=== PATIENT | female | born 1995 | race Caucasian/White ===

== ENCOUNTER 2017-03-24 16:58 | Emergency (ER) | payer SELFPAY ==
[~2017-03-24] VITALS: Ht 162.6 cm; Wt 72.0 kg
[2017-03-24 17:07] VITALS: Ht 162.6 cm; Wt 72.0 kg
--- NOTE | 2017-03-24 20:32 | RADRPT ---
PROCEDURE: XR Lumbar Spine. CLINICAL INDICATION: Trauma, fall, back pain TECHNIQUE: AP, lateral and cone-down lateral view of the lumbar spine were obtained. COMPARISON: No prior studies are available for comparison. FINDINGS: There is appearance of a transitional L5 vertebra. No acute fracture or dislocation seen. Small Schm orl's node superior L1 vertebral body. IMPRESSION: No acute abnormality seen. Please see above. RPTAT: HJES .Mikhail Dave MD, MD Date Time Electronically viewed and signed by .Mikhail Dave MD, on 03/24/2017 20:32 .S/
[2017-03-24] MEDS ORDERED: CYCL-319 PO (20:50)
--- NOTE | 2017-03-24 20:59 | ERD ---
ER Documentation Chief Complaint Chief Complaint SLIPPED AT WORK ONTO HER BACK, +LBP & RT KNEE PAIN, DENIES HEAD TRAUMA HPI 22-year-old female presenting 24 hour status post back injury at work. Has not taken any medications for the symptoms. Patient denies saddle paraesthesia, incontinence, urinary retention, RPND, or pain exacerbated by valsalva. Denies fever, chills, night sweats, weight loss, or increase symptoms at night. Patient also denies history of spinal stenosis, HIV, IVDU, arthritis or recent surgery. Patient has no other complaints and describes no other associated manifestations. Nursing notes have been reviewed and are consistent with history given. ROS All systems reviewed and are negative except as per history of present illness. Medications Home Meds Active Scripts Cyclobenzaprine Hcl* (Cyclobenzaprine Hcl*) 10 Mg Tablet, 10 MG PO TID, #15 TAB Prov:MOHAN JIMENEZ PA-C 03/24/17 Allergies Allergies: Coded Allergies: No Known Allergy (Unverified , 03/24/17) PMhx/Soc History of Surgery: No Anesthesia Reaction: No Hx Neurological Disorder: No Hx Respiratory Disorders: No Hx Cardiac Disorders: No Hx Psychiatric Problems: No Hx Miscellaneous Medical Probl: No Hx Alcohol Use: No Hx Substance Use: No Hx Tobacco Use: No Smoking Status: Never smoker Physical Exam Vitals Vital Signs Date Time Temp Pulse Resp B/P Pulse Ox O2 Delivery O2 Flow Rate FiO2 03/24/17 17:07 97.8 83 18 129/88 99 Physical Exam Const: Well-appearing. No distress. Back: No midline, flank or CVA tenderness. Negative straight leg raise. Range of motion decreased secondary to pain. Neur: No saddle anesthesia. Neurovascularly intact bilaterally. Head: Normocephalic, Atraumatic. Eyes: Non-injected; No discharge. EOMI and CRISS bilaterally. Ears: Normal External Ears, EACs clear, TM normal bilaterally without erythema. Nose: Normal external nose; no discharge, or sinus tenderness. Oral: No oral edema visualized. Mucous membranes moist and pink. Neck: No tenderness. No cervical lymphadenopathy, or masses palpated. Supple ~ No meningismus. Pulm: Good air movement in upper and lower respiratory tracts. Clear to auscultation bilaterally. No dyspnea or stridor. Cardio: Regular rate and rhythm; No murmurs, gallops or rubs auscultated. Radia pulses 2+ bilaterally. No cyanosis noted. Capillary refill less than 2 seconds. Abd: Normal bowel sounds. Soft, non tender, non distended. MS: Normal motor strength, normal tone with gross examination. Skin: No petechiae or rashes. Good turgor. Ext: No edema. Normal movement of all extremities grossly observed. Psych: Normal Mood and Affect. Procedures/MDM Patient was evaluated and worked up for back pain as described in history and physical examination. Refused medication in the emergency department. Due to mechanism of trauma x-ray was obtained read by the radiologist given the impression of unremarkable for acute pathology. I reviewed the findings with my attending who agrees discharge is appropriate with outpatient follow-up. Patient has been given results radiology exam. Thus, the treatment plan will include [id number] ibuprofen for discomfort as well as conservative therapy which has been discussed with the patient. At this time I do not suspect cauda equina syndrome, spinal cord compression, aortic involvement, epidural abscess, obstructive nephrolithiasis, pyelonephritis, or other neurovascular compromise. I have spoke with the patient regarding their condition and future management. They have verbally responded that they understand their status and treatment plan. The patients vitals are stable, and their current condition is appropriate for discharge. The patient will be given discharge instructions with return precautions. Departure Diagnosis: Primary Impression: Back pain Back pain location: back pain in unspecified location Chronicity: unspecified Back pain laterality: unspecified Qualified Code: M54.9 - Back pain, unspecified back location, unspecified back pain laterality, unspecified chronicity Condition: Stable Patient Instructions: Back Pain (Acute Or Chronic) Additional Instructions: Follow up with your PCP within the next 1-3 days for a more thorough evaluation and a possible referral to a specialist. Return the the emergency department immediately if symptoms worsen or change. If you have any questions regarding medications, ask your pharmacist or us before you leave. If any adverse reactions occur while taking your medications, discontinue the treatment and return to the emergency department immediately. Take your medications as directed, and complete the entire course of treatment. MOHAN JIMENEZ PA-C Mar 24, 2017 20:59
[2017-03-24 21:09] VITALS: BP 118/77; PULSE 62; RESP 18; TEMP 98.3
== END 2017-03-24 21:11 | disposition home or self-care (01) ==
LOC: FTE 16:58
DX: M54.5 Low back pain (principal)
CPT/HCPCS: 72100